=== PATIENT | male | born 1995 | race Native Hawaiian/Other Pacific Islander ===

== ENCOUNTER 2019-08-11 15:48 | Emergency (ER) | payer MEDICAID ==
[~2019-08-11] VITALS: Ht 170.2 cm; Wt 120.7 kg
[2019-08-11 16:08] VITALS: BP 141/87
== END 2019-08-11 16:45 | disposition home or self-care (01) ==
LOC: ER 15:48
DX: K04.7 Periapical abscess without sinus (principal)

== ENCOUNTER 2020-02-11 21:37 | Emergency (ER) | payer MEDICAID ==
[~2020-02-11] VITALS: Ht 172.7 cm; Wt 115.7 kg
[2020-02-11] MEDS ORDERED: ACETAMINOPHEN/CODEINE#3 (300/30mg) TAB PO ONE (22:00)
[2020-02-11] MEDS ORDERED: KETOROLAC TROMETH 60MG/2ML VIAL IM ONE (23:45)
[2020-02-12 00:27] VITALS: BP 143/79
== END 2020-02-12 00:45 | disposition home or self-care (01) ==
LOC: ER 21:38
DX: K04.7 Periapical abscess without sinus (principal); R51.9 Headache, unspecified
CPT/HCPCS: 70450; 96372; 99284; J1885